=== PATIENT | female | born 1990 | race African-American/Black ===

== ENCOUNTER → 2017-08-17 11:24 | Outpatient (CLI) | payer MEDICARE ==
[~2017-08-17] VITALS: Ht 157.5 cm; Wt 98.0 kg
[2017-08-17 12:44] VITALS: Ht 157.5 cm; Wt 98.0 kg
== END | disposition home or self-care (01) ==
LOC: D.FANS 11:24
DX: R63.5 Abnormal weight gain (principal)

== ENCOUNTER 2017-10-22 17:48 | Emergency (ER) | payer MEDICARE ==
[~2017-10-22] VITALS: Ht 157.5 cm; Wt 89.1 kg
[2017-10-22 17:55] VITALS: Ht 157.5 cm; Wt 89.1 kg
[2017-10-22] MEDS ORDERED: AMBIEN5 MG PO (17:56)
[2017-10-22] MEDS ORDERED: TRINTELLIX5 MG PO (17:56)
[2017-10-22 18:49] LABS: UDS - AMPHET NEGATIVE QUAL (NEGATIVE); UDS - BARB NEGATIVE QUAL (NEGATIVE); UDS - BENZO NEGATIVE QUAL (NEGATIVE); UDS - COCAINE NEGATIVE QUAL (NEGATIVE); UDS - OPIATE NEGATIVE QUAL (NEGATIVE); UDS - PCP NEGATIVE QUAL (NEGATIVE); UDS - THC NEGATIVE QUAL (NEGATIVE)
[2017-10-22 18:49] LABS: BASOPHILS 0.2 % (0-2); EOSINOPHILS 1.1 % (0-7); HEMATOCRIT 37.1 % (36.0-48.0); HEMOGLOBIN 11.9 g/dL (12-16); IMMATURE GRANULOCYTES 0.2 % (0-5); LYMPHOCYTES 34.5 % (15-50); MCH 24.5 pg (26.0-34.0); MCHC 32.1 g/dL (31.0-37.0); MCV 76.3 fL (80.0-100.0); MEAN PLATELET VOLUME 9.2 fL (7.4-10.4); MONOCYTES 8.6 % (2-11); NEUTROPHILS 55.4 % (40-80); PLATELET COUNT 325 10x3/uL (130-400); RBC 4.86 10x6/uL (4.00-5.40); RDW 17.9 % (11.5-14.5)
[2017-10-22 19:17] LABS: HCG SERUM NEGATIVE (NEGATIVE)
[2017-10-22 19:21] LABS: ALBUMIN 3.3 g/dL (3.4-5.0); ALKALINE PHOSPHATASE 69 U/L (46-116); ALT (SGPT) 21 U/L (10-68); BILIRUBIN - TOTAL 0.16 mg/dL (0.2-1.3); CALC OSMOLALITY 279 mosm/kg (275-300); CALCIUM 8.8 mg/dL (8.5-10.1); CARBON DIOXIDE 29.3 mmol/L (21.0-32.0); CHLORIDE - SERUM 107 mmol/L (98-107); CREATININE - SERUM 0.8 mg/dL (0.6-1.3); GLUCOSE 108 mg/dL (74-106); POTASSIUM - SERUM 3.6 mmol/L (3.5-5.1); PROTEIN - SERUM 7.1 g/dL (6.4-8.2); SODIUM 141 mmol/L (136-145); UREA NITROGEN 8 mg/dL (7-18); eGFR NON AFRICAN AMERICAN > 90 mL/min (90-120)
[2017-10-22 19:25] LABS: APPEARANCE HAZY (CLEAR); BILIRUBIN NEGATIVE (NEGATIVE); COLOR PINK (YELLOW); GLUCOSE NEGATIVE (NEGATIVE); KETONE NEGATIVE (NEGATIVE); NITRITE NEGATIVE (NEGATIVE); PROTEIN NEGATIVE (NEGATIVE); SPECIFIC GRAVITY 1.025 (1.005-1.020); UROBILINOGEN NORMAL (NORMAL)
[2017-10-22 19:26] LABS: WHITE CELLS - URINE 0-5 /hpf (0-5)
[2017-10-22 19:27] LABS: BACTERIA MODERATE /hpf (NONE SEEN); EPITHELIAL CELLS 0-5 /hpf (0-5); RED CELLS - URINE >50 /hpf (0-5)
[2017-10-22 21:04] VITALS: BP 132/83
== END 2017-10-22 21:29 ==
LOC: D.ER 17:48
PROVIDERS: Family Medicine
DX: F32.9 Major depressive disorder, single episode, unspecified (principal); Z86.59 Personal history of other mental and behavioral disorders